=== PATIENT | male | born 2000 | race American Indian/Alaskan Native ===

== ENCOUNTER 2020-02-25 23:33 | Emergency (ER) | payer SELFPAY ==
[2020-02-26 00:51] VITALS: BP 129/79
--- NOTE | 2020-02-26 01:36 | XRay Report ---
CHEST 2 VIEWS INDICATION / CLINICAL INFORMATION: cough and chest congestion. COMPARISON: None available. FINDINGS: SUPPORT DEVICES: None. HEART / MEDIASTINUM: No significant abnormality. LUNGS / PLEURA: No significant pulmonary or pleural abnormality. No pneumothorax. ADDITIONAL FINDINGS: No significant additional findings. IMPRESSION: 1. No acute findings. No evidence of pneumonia. Signer Name: Renu Arcos MD Signed: 02/26/2020 1:31 AM Workstation Name: [id number]
== END 2020-02-26 03:30 | disposition left against medical advice (07) ==
LOC: ED 23:33
DX: R06.00 Dyspnea, unspecified (principal); Z53.21 Procedure and treatment not carried out due to patient leaving prior to being seen by health care provider
CPT/HCPCS: 71046